=== PATIENT | female | born 1955 | race Caucasian/White ===

== ENCOUNTER 2025-03-24 11:58 | Observation (INO) | payer MEDICAID, MEDICARE ==
[~2025-03-24] VITALS: Ht 162.6 cm; Wt 85.6 kg
[2025-03-24 18:21] LABS: BASO # 0.1 10^3/uL (0.0-0.2); BASO % 0.7 % (0.0-1.0); EOS # 0.3 10^3/uL (0.0-0.5); EOS % 2.9 % (0.0-3.0); LYMPH # 2.5 10^3/uL (1.5-5.0); LYMPH % 28.6 % (24.0-44.0); MONO # 0.6 10^3/uL (0.0-0.8); MONO % 6.4 % (2.0-8.0); NEUTROPHILS # 5.3 10^3/uL (1.5-8.5); NEUTROPHILS % 61.3 % (36.0-66.0); PLATELET COUNT, AUTOMATED 271 10^3/uL (150-450)
[2025-03-24 18:43] LABS: INR 0.9
[2025-03-24 18:55] LABS: CALCIUM LEVEL 9.9 MG/DL (8.3-10.6); CARBON DIOXIDE LEVEL 25.0 MMOL/L (20-31); CHLORIDE LEVEL 109.0 MMOL/L (98-107); CREATININE FOR GFR 1.22 MG/DL (0.55-1.30); GLOMERULAR FILTRATION RATE 47.7 (>39); POTASSIUM SERUM 4.5 MMOL/L (3.5-5.1); SODIUM LEVEL 145.0 MMOL/L (136-145)
[2025-03-24 18:58] LABS: FREE T4 1.34 NG/DL (0.89-1.76)
[2025-03-24] MEDS ORDERED: FLUO-365 PO (20:50)
[2025-03-24] MEDS ORDERED: VENL37.598 PO (20:50)
[2025-03-24] MEDS ORDERED: ACET-897 PO (20:50)
[2025-03-24] MEDS ORDERED: OXYB5TAB14 PO (20:50)
[2025-03-24] MEDS ORDERED: LEVO88TA3 PO (20:50)
[2025-03-24] MEDS ORDERED: LORA-930 PO (20:50)
[2025-03-24] MEDS ORDERED: LOPI600T PO (20:50)
[2025-03-24] MEDS ORDERED: TRAZ-252 PO (20:50)
[2025-03-24] MEDS ORDERED: FAMO1TAB11 PO (20:50)
[2025-03-24] MEDS ORDERED: HOME MED LIST COMPLETE! XX SCH (20:55)
[2025-03-24] MEDS: GEMFIBROZIL 600 MG TABLET PO SCH (21:00)
[2025-03-24] MEDS: FLUoxetine 20 MG CAP PO SCH (21:00)
[2025-03-24] MEDS ORDERED: ACETAMINOPHEN 325 MG TAB PO PRN (22:15)
[2025-03-24] MEDS: FAMOTIDINE 20 MG TAB PO SCH (23:00)
[2025-03-24] MEDS: VENLAFAXINE **XR** 37.5 MG CAPSULE PO SCH (23:00)
[2025-03-24 23:19] LABS: VITAMIN B12 LEVEL 857.0 PG/ML (211-911)
[2025-03-25 00:25] VITALS: BP 142/66; TEMP 97.4; O2SAT 97
[2025-03-25 02:15] LABS: KETONE, URINE AUTO RFX NEGATIVE (NEGATIVE); RBC, URINE AUTO RFX 1 /HPF (0-3); SQUAM EPITHELIAL CELL UR AURFX 0 /HPF (0-6)
[2025-03-25 02:16] LABS: LEUKOCYTE ESTERASE UR AUTO RFX 2+ (NEGATIVE); NITRITE, URINE AUTO RFX POSITIVE (NEGATIVE); WBC, URINE AUTO RFX 27 /HPF (0-3)
[2025-03-25 04:00] VITALS: BP 126/62; TEMP 97.4; O2SAT 96
[2025-03-25] MEDS: CIPROFLOXACIN 250 MG TAB PO SCH (06:16)
[2025-03-25] MEDS: LEVOTHYROXINE 88 MCG TABLET (0.088 MG) PO SCH (06:16)
[2025-03-25] MEDS: HEPARIN SOD 5000 UNITS/ML 1 ML VIAL/SYRINGE SC SCH (06:19)
[2025-03-25 06:55] LABS: PLATELET COUNT, AUTOMATED 272 10^3/uL (150-450)
[2025-03-25 07:43] LABS: CALCIUM LEVEL 9.2 MG/DL (8.3-10.6); CARBON DIOXIDE LEVEL 26.0 MMOL/L (20-31); CHLORIDE LEVEL 108.0 MMOL/L (98-107); CREATININE FOR GFR 1.16 MG/DL (0.55-1.30); GLOMERULAR FILTRATION RATE 50.7 (>39); MAGNESIUM LEVEL 2.2 MG/DL (1.8-2.4); POTASSIUM SERUM 4.5 MMOL/L (3.5-5.1); SODIUM LEVEL 145.0 MMOL/L (136-145)
[2025-03-25] MEDS: LIDOCAINE 5% PATCH TD SCH (09:39)
[2025-03-25] MEDS: cefTRIAXone SOD 1 GM in DEXTROSE 5% (D5W) ADV/MINI-BAG 50 ML IV SCH (09:39)
[2025-03-25 11:54] VITALS: BP 129/77; TEMP 97.9; O2SAT 100
[2025-03-25] MEDS ORDERED: CEFD1CAP9 PO (19:41)
[2025-03-25] MEDS ORDERED: traZODone 50 MG TAB PO SCH (21:00)
[2025-03-25] MEDS ORDERED: LORATADINE 10 MG TAB PO SCH (21:00)
== END 2025-03-25 14:01 | disposition home or self-care (01) ==
LOC: M ED 15:40 → M ED INP 15:41 → M MS4PR 03-25 00:30
PROVIDERS: ADMIT Student in an Organized Health Care Education/Training Program; ATTEND Student in an Organized Health Care Education/Training Program
DX: R26.89 Other abnormalities of gait and mobility (principal); R33.9 Retention of urine, unspecified; S20.212A Contusion of left front wall of thorax, initial encounter; N39.0 Urinary tract infection, site not specified; R42 Dizziness and giddiness; E03.9 Hypothyroidism, unspecified; F32.A Depression, unspecified; E78.5 Hyperlipidemia, unspecified; K21.9 Gastro-esophageal reflux disease without esophagitis; G47.33 Obstructive sleep apnea (adult) (pediatric); G47.00 Insomnia, unspecified; Z85.3 Personal history of malignant neoplasm of breast; Z90.13 Acquired absence of bilateral breasts and nipples; Z90.79 Acquired absence of other genital organ(s); Z96.21 Cochlear implant status; W01.0XXA Fall on same level from slipping, tripping and stumbling without subsequent striking against object, initial encounter; Y92.9 Unspecified place or not applicable; Z79.890 Hormone replacement therapy; Z79.899 Other long term (current) drug therapy; Z88.2 Allergy status to sulfonamides
CPT/HCPCS: 36415; 70450; 71101; 72125; 80048; 81001; 82607; 83735; 84439; 84443; 85025; 85027; 85610; 85730; 87088; 87186; 93005; 93880; 96372; 96374; 97116; 97161; 97165; 97530; 99284; G0378; J0696